=== PATIENT | male | born 1970 | race Caucasian/White ===

== ENCOUNTER 2022-04-29 10:01 | Emergency (ER) | payer OTHER ==
[2022-04-29 12:00] LABS: BASOPHIL 0.7 % (0-2); EOSINOPHIL 2.7 % (0-5); HCT 50.9 % (42.0-52.0); HGB 17.3 g/dl (13.2-18.0); LYMPHOCYTE 24.9 % (15-48); MCH 31.7 pg (25.0-31.0); MCV 93.4 fL (78.0-100.0); MONOCYTE 8.5 % (0-12); MPV 11.5 fL (6.0-9.5); NRBC 0; PLT 133 K/uL (150-400); RBC 5.45 M/uL (4.70-6.00); RDW 11.8 % (11.5-14.0); WBC 4.5 K/uL (4.0-10.5)
[2022-04-29 12:05] LABS: BUN/CREAT RATIO (CALC) 14.9 RATIO; CREATININE 0.87 mg/dL (0.67-1.17); POTASSIUM 4.2 mmol/L (3.5-5.1)
== END 2022-04-29 12:53 | disposition home or self-care (01) ==
LOC: FER 10:01
PROVIDERS: Emergency Medicine
DX: T18.128A Food in esophagus causing other injury, initial encounter (principal)
CPT/HCPCS: 36415; 80048; 85025; 99283